=== PATIENT | female | born 1990 | race Caucasian/White ===

== ENCOUNTER 2016-09-19 21:25 | Observation (INO) | payer OTHER, MEDICAID ==
[2016-10-01] MEDS ORDERED: PRENATAL VIT1 TAB PO (13:44)
== END 2016-09-20 03:21 | disposition home or self-care (01) ==
DX: O47.1 False labor at or after 37 completed weeks of gestation (principal); Z3A.38 38 weeks gestation of pregnancy; Z98.890 Other specified postprocedural states

== ENCOUNTER 2016-09-28 06:40 | Inpatient (IN) | payer OTHER, MEDICAID ==
[~2016-09-28] VITALS: Ht 152.4 cm; Wt 68.0 kg
--- NOTE | ~2016-09-28 | HP ---
ADMIT: 09/28/2016 RM/LOC: 220 [facility] MR#: [id number] [address] JERAMIE WAYNE [address] [place] [id number] History and Physical SEX: F AGE: 26 : 1990 DATE OF SERVICE: INDICATION: The patient is a 26-year-old white female, 2, para 1, who presented at 37-5/7th weeks' estimated gestational age by an estimated due date of 10/14/2016 which according to the patient's report was set at an 8- week ultrasound with Dr. Briana Phan in [place]. She states she had an uncomplicated . There is some question as to whether the patient has been getting routine care. According to nursing reports, the patient had been seen both at this hospital last week and in [facility], both hospitals were unable to obtain records. PREVIOUS MEDICAL HISTORY: She denies any significant previous medical history. FAMILY HISTORY: Significant for ovarian cancer, breast cancer, and diabetes. ALLERGIES: SHE STATES SHE HAS AN ALLERGIC REACTION TO FLU SHOT. PHYSICAL EXAMINATION: GENERAL: The patient is a well-developed, well- nourished white female, alert and oriented, in no apparent distress with normal stream of thought and content of speech. HEART: Regular rate and rhythm without murmurs, rubs, or gallops. LUNGS: Clear to auscultation bilaterally. ABDOMEN: Soft with positive bowel sounds. Gravid. Cervix is 9 cm dilated, 100% effaced, and zero station. Amniotomy was performed with return of clear fluid. ASSESSMENT: Term intrauterine , in advanced active labor. We will anticipate a spontaneous vaginal delivery. We will plan on obtaining what records are available from Dr. Briana Phan's office in [place]. Constantin Yo MD/ kendell JOB #: [id number] CC: Constantin Yo, Attending Physician Constantin Yo, Family Physician
[2016-10-01] MEDS ORDERED: PRENATAL VIT1 TAB PO (13:44)
--- NOTE | 2016-10-30 07:43 | OR ---
ADMIT: 09/28/2016 RM/LOC: 220 [facility] MR#: [id number] [address] JERAMIE WAYNE [address] [place] [address] Operative/Delivery Room Report SEX: F AGE: 26 : 1990 SURGERY DATE: 09/28/2016 SURGEON: Constantin Yo MD PRINCIPAL DIAGNOSIS: Term intrauterine . PROCEDURE: Spontaneous vaginal delivery. INDICATION: The patient is a 26-year-old white female, 2, para 1, who presented at 37-5/7th weeks' estimated gestational age by an estimated due date of 10/14/2016 which according to the patient's report was set at an 8- week ultrasound with Dr. Briana Phan in [place]. She states she had an uncomplicated . There is some question as to whether the patient has been getting routine care. According to nursing reports, the patient had been seen both at this hospital last week and in [facility], both hospitals were unable to obtain records. DESCRIPTION OF PROCEDURE: When the patient was noted to be complete and pushing, she was prepped and draped in the usual fashion in dorsal lithotomy position. Infant's head was allowed to deliver over an intact perineum. After restitution of the head, the neck was examined for nuchal cord and none was noted. The anterior followed by the posterior shoulders were delivered, followed by expulsion of the remainder of the infant. Cord was clamped after approximately 30 seconds, cut, and was placed on the maternal stomach in the care of nursing staff. Placenta was then delivered intact with normal appearance. Uterine cervix was visualized and noted to be without lacerations or tears. Attention was then turned to the perineum. She was noted to have two small skin abrasions, both of which were hemostatic. The patient tolerated the procedure well and was taken to the recovery room in stable condition. Constantin Yo MD/ lizzie JOB #: [id number] CC: Constantin Yo, Attending Physician Constantin Yo, Family Physician
--- NOTE | 2016-11-27 09:38 | DS ---
ADMIT: 09/28/2016 RM/LOC: 220 [facility] MR#: [id number] [address] JERAMIE WAYNE [address] [place] [id number] General Discharge Summary SEX: F AGE: 26 : 1990 ADMISSION DATE: 09/28/2016 DISCHARGE DATE: 09/29/2016 PRINCIPAL DIAGNOSIS: Term intrauterine at 37-5/7th weeks' estimated gestational age. REASON FOR HOSPITALIZATION: The patient is a 26-year-old white female, 2, para 1, who presented at 37-5/7th weeks' estimated gestational age in advanced active labor. OPERATIVE PROCEDURES: The patient underwent a spontaneous vaginal delivery on 09/28/2016. HOSPITAL COURSE: The patient was admitted in advanced active labor, underwent an uncomplicated spontaneous vaginal delivery. She did well through the initial day. By the morning of day #1, she was tolerating regular diet, experiencing good pain control with oral pain medications, ambulating without difficulty, and using the bathroom without any problems. She was dismissed to home on day #2 on the following medications: 1. Motrin 800 mg one tab p.o. q.8 hours p.r.n. 2. Tylenol extra-strength two tabs p.o. q.6 hours p.r.n. She was instructed to follow up in the clinic again in 6 weeks' time, sooner as needed for any problems. Constantin Yo MD/ kendell JOB #: [id number] CC: Constantin Yo MD, Attending Physician Constantin Yo MD, Family Physician
== END 2016-09-29 08:45 | disposition home or self-care (01) | DRG 775 ==
LOC: 2LDRP 06:40 → BC 06:40 → 2LDRP 07:05
PROVIDERS: ADMIT Obstetrics & Gynecology
PROC: 10E0XZZ Delivery of Products of Conception, External Approach (ICD-10-PCS; principal; 2016-09-28)
DX: O80 Encounter for full-term uncomplicated delivery (principal); Z37.0 Single live birth; Z3A.37 37 weeks gestation of pregnancy